=== PATIENT | female | born 1945 | race Caucasian/White ===

== ENCOUNTER 2016-05-16 19:58 | Emergency (ER) | payer OTHER ==
[~2016-05-16 19:58] MED LIST: ATENOLOL; CALCIUM; COLACE; DICYCLOMINE HCL20 MG; LIPITOR; MULTI-VITAMIN1 TAB; NEXIUM; OXAPROZIN600 MG; POSTURE600 MG; [UNRECOGNIZED DRUG - OTHER]
== END 2016-05-16 20:07 | disposition home or self-care (01) ==
LOC: CED 19:58
DX: K04.7 Periapical abscess without sinus (principal); G30.9 Alzheimer's disease, unspecified; F02.80 Dementia in other diseases classified elsewhere, unspecified severity, without behavioral disturbance, psychotic disturbance, mood disturbance, and anxiety
CPT/HCPCS: 99282